=== PATIENT | female | born 1960 | race Caucasian/White ===

== ENCOUNTER → 2020-12-26 08:00 | Outpatient (CLI) | payer OTHER ==
[~2020-12-26 08:00] MED LIST: ATIVAN PO; ATORVASTATIN CA40 MG PO; COZAAR100 MG PO; DICLOFENAC SOD100 GM TOP; GABA PO; GLIMEPIRIDE1 M1 PO; LANTUS; LORAZEPAM0.5 MG PO; LUNESTA3 MG PO; OMEPRAZOLE-BIC1 EAC1 PO; PAXIL40 MG PO; ULTRAM50 MG PO
== END | disposition home or self-care (01) ==
LOC: ADM 07:45 → LAB 08:00 → CIR.AMB 01-02 07:00 → EDBD 01-02 07:45 → CIR.AMB 01-02 07:45 → EDSTATUS 01-02 07:45
PROVIDERS: ATTEND Obstetrics & Gynecology Gynecology
DX: N32.81 Overactive bladder (principal); N39.41 Urge incontinence; Z20.822 Contact with and (suspected) exposure to COVID-19; Z20.828 Contact with and (suspected) exposure to other viral communicable diseases